=== PATIENT | female | born 2000 | race American Indian/Alaskan Native ===

== ENCOUNTER 2021-01-29 04:08 | Emergency (ER) | payer SELFPAY ==
[2021-01-29 07:02] LABS: Bilirubin,Urine NEG (Negative); Blood,Urine NEG (Negative); Color,Urine Yellow (Yellow); Mucus,Urine FEW /HPF; Protein,Urine <15 mg/dL mg/dL (Negative); Urobilinogen,Urine < 2.0 mg/dL (<2.0)
[2021-01-29 07:03] LABS: HCG Qualitative,Urine Negative (Negative)
--- NOTE | 2021-01-29 08:33 | Emergency Department Report ---
ED Female HPI - General Chief complaint: Urogenital-Female Stated complaint: VAGINAL IRRITATION Time Seen by Provider: 01/29/21 08:05 Source: patient Mode of arrival: Ambulatory Limitations: No Limitations - History of Present Illness Initial comments: 20-year-old female presents to the ER today complaining of vaginal foreign body. Patient states that she has a "condom stuck inside of her vagina". She states that this occurred 3 and this morning immediately after sexual intercourse. Patient states that she attempted to remove it but was unsuccessful. He reports some mild vaginal discomfort but otherwise denies any other symptoms. Complaint: other (Vaginal FB) -: Sudden (this morning at 3 am ) - Related Data Allergies Allergy/AdvReac Type Severity Reaction Status Date / Time No Known Allergies Allergy Unverified 01/29/21 06:11 ED Review of Systems ROS: Stated complaint: VAGINAL IRRITATION Other details as noted in HPI Comment: All other systems reviewed and negative Genitourinary: other (vaginal foreign body). denies: urgency, dysuria, frequency, hematuria, discharge, abnormal menses, dyspareunia ED Past Medical Hx - Past Medical History Previous Medical History?: No - Surgical History Past Surgical History?: No ED Physical Exam - General Limitations: No Limitations General appearance: alert, in no apparent distress - Head Head exam: Present: atraumatic, normocephalic, normal inspection - Eye Eye exam: Present: normal appearance, PERRL, EOMI Pupils: Present: normal accommodation - Neck Neck exam: Present: normal inspection, full ROM - Respiratory Respiratory exam: Present: normal lung sounds bilaterally. Absent: respiratory distress - Cardiovascular Cardiovascular Exam: Present: regular rate, normal rhythm, normal heart sounds - GI/Abdominal GI/Abdominal exam: Present: soft. Absent: distended, tenderness, guarding, rebound - External exam: Present: normal external exam, other (Auto Tune Up Mechanic used - Olamide) Speculum exam: Present: foreign body (Condom noted posterior to the cervix on right; this was removed using ring forceps. No complications after removal.). Absent: erythema, vaginal discharge, cervical discharge, vaginal bleeding, tissue, laceration - Neurological Exam Neurological exam: Present: alert, oriented X3, CN II-XII intact, normal gait - Psychiatric Psychiatric exam: Present: normal affect, normal mood - Skin Skin exam: Present: intact ED Course Vital Signs 01/29/21 01/29/21 06:13 08:48 Temperature 98.1 F Pulse Rate 64 88 Respiratory 18 16 Rate Blood Pressure 114/71 Blood Pressure 130/76 [Left] O2 Sat by Pulse 100 100 Oximetry - Procedure Description Procedures done: Vaginal foreign body removal: Using ring forceps. Foreign body removed appeared to be a single intact rubber condom. No complications after removal. Patient tolerated procedure well without any complication. Critical care attestation.: If time is entered above; I have spent that time in minutes in the direct care of this critically ill patient, excluding procedure time. ED Disposition Clinical Impression: Vaginal foreign body Disposition: DC-01 TO HOME OR SELFCARE Is pt being admited?: No Does the pt Need Aspirin: No Condition: Stable Instructions: Vaginal Foreign Body, [id number] Additional Instructions: Recommend just using a gentle vaginal wash for the next couple days. Recommend avoiding sexual intercourse for the next couple days. Continue practicing safe sex. Follow-up closely with your [facility]. Return to the ER if your symptoms worsens or changes in any way. Referrals: [facility] [Provider Group] - 3-5 Days Time of Disposition: 08:34
[2021-01-29 08:49] VITALS: BP 130/76
== END 2021-01-29 08:47 | disposition home or self-care (01) ==
LOC: ED 04:08
DX: T19.2XXA Foreign body in vulva and vagina, initial encounter (principal); X58.XXXA Exposure to other specified factors, initial encounter; Y93.89 Activity, other specified; Y92.89 Other specified places as the place of occurrence of the external cause; Y99.8 Other external cause status
CPT/HCPCS: 81001; 81025; 99284